=== PATIENT | female | born 1980 | race Caucasian/White ===

== ENCOUNTER 2024-01-15 02:10 | Observation (INO) | payer OTHER, SELFPAY ==
[2024-01-14] VITALS (7 sets, daily range): BP systolic 96–117; BP diastolic 53–69; BMI 25.1
[2024-01-14 22:43] LABS: % Basophils 0.2 % (0-2); % Eosinophils 0.1 % (0-6); % Immature Granulocytes 0.9 % (0-0.5); % Lymphocytes 6.8 % (20.5-51.1); % Monocytes 4.6 % (1.7-9.3); % Neutrophils 87.4 % (42.2-75.2); Absolute Basophils 0.1 10^3/uL (0-0.2); Absolute Immature Granulocytes 0.2 10^3/uL (0-0.05); Absolute Lymphocytes 1.5 10^3/uL (1.2-3.4); Absolute Neutrophils 19.1 10^3/uL (1.4-6.5); Hematocrit 28.7 % (37.0-47.0); Mean Corp Hgb Conc. 34.8 g/dL (33.0-37.0); Mean Corpuscular Hgb 29.4 pg (27.0-31.0); Mean Corpuscular Volume 84.4 fL (81.0-99.0); Mean Platelet Volume 10.2 fL (7.4-10.4); Nucleated Red Blood Cells % 0 %; Platelet Count 264 10^3/uL (130-400); Red Cell Dist. Width 13.4 % (11.5-14.5); White Blood Cell Count 21.8 10^3/uL (4.8-10.8)
[2024-01-14] MEDS: TORADOL 30 MG IV (22:47)
[2024-01-14] MEDS: ZOFRAN 4 MG IV (22:50)
--- NOTE | 2024-01-14 22:51 | ED.GENMED ---
History of Present Illness
General
Chief Complaint: Vaginal Bleeding
Source: patient and spouse
Exam Limitations: none
Time Seen by Provider: 01/14/24 22:38
Travel History
Have you had any contact with someone who has COVID-19?: No
Do you have any symptoms of coronavirus? Fever > 100 degrees, chills, cough, shortness of breath, sore throat, loss of taste or smell, muscle aches, or headache?: No
History of Present Illness
History of Present Illness:
This is a 43 year old female that comes in with c/o lower abd pain. states that she had a miscarriage last month. States that she bleed after this and then her bleeding stopped. Then on Monday she started with some brown bleeding and then
yesterday it turned red. State that she was also having clots. States that he came home yesterday he found her on the bathroom floor as she had passed out. States that today her pain is worse and she had chills, and vomited here. States that she has
a headache with dizziness. Denies any fever, chills, chest pain, SOB, diarrhea, urinary burning.
Past History
Past History
ED Past Medical History: Asthma and Other (Miscarriage, Ectopic, )
ED Past Surgical History: None
Social History
Tobacco: Non-smoker
Alcohol: None
Personal:
Living: with family
Review of Systems
Review of Systems
All Other Systems: ROS reviewed and negative except as documented in HPI and ROS
Constitutional: Reports chills; Denies fever
EENT: Reports no symptoms
Respiratory: Reports no symptoms; Denies cough or trouble breathing
Cardiac: Reports no symptoms; Denies chest pain
ABD/GI: Reports abdominal pain, nausea and vomiting; Denies diarrhea
: Reports no symptoms; Denies dysuria, frequency or urgency
Musculoskeletal: Reports no symptoms
Skin: Reports no symptoms
Neurological: Reports dizzy and headache
Psychiatric: Reports no symptoms
Phy Exam
General Physical Exam
General Presentation: moderate distress
General age: appears stated age
General Skin: warm, dry and pale
General Habitus: normal
General Mental: alert
General Hydration: dry mucous membranes
ENT Exam
ENT Exam: TM's normal, pharynx normal and neck supple
Eye Exam
Eye Exam: EOMI
Cardiovascular Exam
Cardiovascular Exam: regular rate/rhythm, no edema and normal peripheral pulses
Pulmonary Exam
Pulmonary Exam: lungs clear, no respiratory distress, no rales, chest non tender, no crackles, no rhonchi, no wheezing and no cough
Gastrointestinal Exam
Gastrointestinal Exam: normal bowel sounds, soft, no organomegaly, no pulsatile mass, non distended and tender (Severe right lower abd pain with palpation. )
Musculoskeletal Exam
Musculoskeletal Exam: full ROM and no edema
Skin Exam
Skin Exam: normal color, warm/dry, no rash and no petechia
Psychiatric Exam
Psychiatric Exam: normal mood/affect
Course
Orders/Labs/Results
Orders:
Orders
01/14/24 22:20
Cardiac Monitoring- Treatment ONCE
Test Result ONCE
01/14/24 22:35
Type+Screen Urgent
Beta HCG Quantitative Urgent
Comment: ADD ON
Complete Blood Count/With Diff Urgent
Comprehensive Metabolic Panel Urgent
HCG, Serum Qualitative Screen Urgent
01/14/24 22:46
Ketorolac [Toradol] 30 mg .ROUTE .STK-MED ONE
Ondansetron Injectable [Zofran] 4 mg .ROUTE .STK-MED ONE
01/14/24 22:47
Ketorolac [Toradol] 30 mg IV NOW STA
01/14/24 22:50
0.9% Sodium Chloride 1000 ml [Nss] 1,000 ml IV BOLUS
Ketorolac [Toradol] 30 mg IV NOW STA
Ondansetron Injectable [Zofran] 4 mg IV NOW STA
Ondansetron Injectable [Zofran] 4 mg IV NOW STA
01/14/24 22:55
Add On- LAB Urgent
Tests Added?: HCG Quantatative
01/14/24 23:28
US 1st Trimester Urgent
Comment:
Reason For Exam: Right lower abd pain.
01/14/24 23:31
HYDROmorphone [Dilaudid] 1 mg IV NOW STA
01/15/24 00:30
0.9% Sodium Chloride 1000 ml [Nss] 1,000 ml IV BOLUS
01/15/24 01:05
HYDROmorphone [Dilaudid] 1 mg IV NOW STA
01/15/24 01:06
HYDROmorphone [Dilaudid] 1 mg .ROUTE .STK-MED ONE
01/15/24 01:18
0.9% Sodium Chloride 500 ml [Nss] 500 ml IV BOLUS
Abnormal Lab Results
01/14/24
22:35
WBC 21.8 H 10^3/uL
(4.8-10.8)
RBC 3.40 L 10^6/uL
(4.20-5.40)
Hgb 10.0 L g/dL
(12.0-16.0)
Hct 28.7 L %
(37.0-47.0)
Abs Immat Gran (auto) 0.2 H 10^3/uL
(0-0.05)
Absolute Neuts (auto) 19.1 H 10^3/uL
(1.4-6.5)
Absolute Monos (auto) 1.0 H 10^3/uL
(0.1-0.6)
Immature Gran % 0.9 H %
(0-0.5)
Neutrophils % 87.4 H %
(42.2-75.2)
Lymphocytes % 6.8 L %
(20.5-51.1)
Sodium 134 L mmol/L
(135-145)
Chloride 108 H mmol/L
(98-107)
Carbon Dioxide 21 L mmol/L
(22-30)
Glucose 169 H mg/dl
(70-99)
01/14/24 22:35
01/14/24 22:35
Leukocytosis, H/H low. Glucose nonfasting. HCG 2470.00
Vital Signs
Initial and Last Documented VS:
Initial Vital Signs
Temp Pulse Resp BP Pulse Ox
98.9 F 113 18 107/64 100
01/14/24 22:21 01/14/24 22:21 01/14/24 22:21 01/14/24 22:21 01/14/24 22:21
Last Documented Vital Signs
Temp Pulse Resp BP Pulse Ox
98.9 F 77 14 107/59 100
01/14/24 22:21 01/15/24 01:11 01/15/24 01:11 01/15/24 01:11 01/15/24 01:15
Angiographer consulted with Physician
Angiographer consulted with physician?: Yes
Name of Physician Consulted: Dr. Cisneros
MDM/Problems Addressed
Differential Diagnosis Includes:
Appendicitis,
MDM/Problems Addressed:
This is a 43 year old female that comes in with c/o lower abd pain. states that she had a Miscarriage one month ago. State that she bleed after this and then stopped. Patient started on Monday with her first period. State that she has had
lower abd pain since yesterday with clots.
Will get labs and CT scan. IV fluids and medicate for pain.
Back to speak with . Explained that her HCG was positive so a Brown was done and her level is elevated. This may be an ectopic . Will cancel the CT scan and get US.
Back Into see patient and . Explained that there are retained products of conception. Discussed with Dr. Salgado and patient will be admitted by house [employer] to her service and she will take patient to the OR today.
Chronic conditions affecting care:
NA
Acute Exacerbation and/or Progression of Chronic Illness:
NA
*Radiology
Radiology exam reviewed: radiology read reviewed (US- abnormally shaped lobulated intrauterine appearent empty gestational sac in the lower uterine segment extending into the cervix, likely reflecting spontaneous in progress. Normal right
ovary. Left ovary not visualized. No suspicious adnexal mass lesions or pelvic free fluid. )
*Pulse Oximetry
Patient hypoxic: no
*EKG
Interpreted by ED Provider?: NA
Rate: EKG- N/A
*Pai G[employer] Manager Interpretation
Rate: normal
Heart Rate: 98
Rhythm: sinus
*Critical Care Note
Total Time (30-74mins, 75-104mins- exclusive of procedures): Not Applicable
ED Attending Note
-
Portions of this chart may have been created with voice recognition software.� Occasional wrong word or��sound alike� substitutions may have occurred due to the inherent limitations of voice recognition software.
Discharge Plan
Departure
Patient Disposition: Admit
Date of Disposition: 01/15/24
Time of Disposition: 01:41
Admit to: Med/Surg
Presentation/result/management discussed w/ accepting MD/DO: Dr. Salgado
Patient with high blood pressure during this ER visit?: No
Condition: Good
Covid-19: Not Applicable
Discharge Problem:
Retained products of conception
Prescriptions:
No Action
No Current Medications
0
Referrals:
UNKNOWN - PT DOES,NOT KNOW [Family Provider] -
Interventions
Interventions:
*Risk Screen - Suicide Last Done: 01/14/24 22:21
*General Assessment Last Done: 01/14/24 22:21
*Neglect/Abuse Screening Last Done: 01/14/24 22:21
ED- Fall Risk Assessment Last Done: 01/14/24 23:01
*ED COVID-19 Vaccine History Last Done: 01/14/24 22:33
ED-Female Genitourinary Assessment Last Done: 01/14/24 23:01
Discharge Date and Time
Print Language: KINYARWANDA
[2024-01-14 22:54] LABS: HCG, Serum Qualitative Screen Positive
[2024-01-14] MEDS: NSS 1000 IV (22:56)
[2024-01-14 22:58] LABS: ALT (SGPT) 16 U/L (0-35); AST (SGOT) 23 U/L (14-36); Albumin 3.9 g/dl (3.5-5.0); Alkaline Phosphatase 45 U/L (38-126); Blood Urea Nitrogen 16 mg/dl (7-17); Calcium 9.2 mg/dl (8.4-10.2); Carbon Dioxide 21 mmol/L (22-30); Chloride 108 mmol/L (98-107); Estimated Creatinine Clearance 77 ml/min; Glucose 169 mg/dl (70-99); Potassium 4.4 mmol/L (3.5-5.1); Sodium 134 mmol/L (135-145); Total Bilirubin 0.6 mg/dl (0.2-1.3); Total Protein 6.5 g/dl (6.3-8.2); eGFR > 60.00
[2024-01-14] MEDS: DILAUDID 1 MG IV (23:34)
[2024-01-15] VITALS (23 sets, daily range): BP systolic 90–130; BP diastolic 44–70; BMI 25.0
[2024-01-15] MEDS: NSS 1000 IV ×3 (00:30→18:36)
[2024-01-15] MEDS: NSS 500 IV (00:30)
[2024-01-15] MEDS: DILAUDID 1 MG IV (01:10)
--- NOTE | 2024-01-15 03:58 | HPS.HSE ---
Family Physician
-
Family Physician: NOT KNOW UNKNOWN - PT DOES
Chief Complaint
-
lower abdominal pain with vaginal bleeding
History of Present Illness
This is a pleasant 43 year old female who comes to the ED with her due to abdominal pain with vaginal bleeding along with syncopal episode in her bathroom. She experienced a miscarriage at home last month with some bleeding which eventually
resolved. A week ago she started with what looked like old brown bloody vaginal discharge that increased in frequency, became more red in color and contained clots. Her found her on the bathroom floor yesterday after a likely syncopal
episode. She eventually began to feel chills and the pain was worsening so they came here. She did have an episode of vomiting after arrival. PMH includes asthma. She denies LANDON, CP, SOB, GRULLON, diarrhea, dysuria or b/l LE discomfort.
Medical History
Past Medical History
Past Medical History: Reports Asthma
Additional Past Medical History:
miscarriage
Past Surgical History: Reports None
Social History
Tobacco: Non-smoker
Alcohol: None
Drug: None
Personal:
Living: With Family
Employment: Employed
Family History
Family History: Not pertinent
Allergies / Home Medications
Allergies reflects when Allergies were last updated in [facility].
Home Medications with original date entered in [facility]
Allergy/Medication List:
Allergies
Allergy/AdvReac Type Severity Reaction Status Date / Time
No Known Allergies Allergy Unverified 01/14/24 22:19
Home Medications
No Meds [No Current Medications] 01/14/24
Review of Systems
-
A 12 point ROS was completed and negative except as noted: Yes
Constitutional: Reports No Symptoms
EENT: Reports No Symptoms
Respiratory: Reports No Symptoms
Cardiac: Reports No Symptoms
Abdomen/GI: Reports Abdominal Pain (RLQ) and Nausea
: Reports No Symptoms
Musculoskeletal: Reports No Symptoms
Skin: Reports No Symptoms
Neurological: Reports No Symptoms
Endocrine: Reports No Symptoms
Hematologic/Lymphatic: Reports No Symptoms
Psych: Reports No Symptoms
Physical Exam
Vital Signs
Vital Signs
Temp Pulse Resp BP Pulse Ox
98.1 F 82 16 112/70 100
01/15/24 02:41 01/15/24 02:41 01/15/24 02:41 01/15/24 02:41 01/15/24 02:41
Physical Exam
General: Well Developed, Well Nourished and Comfortable
HEENT: NormoCephalic, Moist mucous membranes and Atraumatic
Respiratory: Clear and Non Labored Respirations
Cardiac: Regular Rhythm
Breast: Deferred by me
GI: Soft and Tender (RLQ)
Rectal: Deferred by Provider
Genito-urinary: No costovertebral tender and Vaginal Bleeding
Musculoskeletal: No Clubbing, No Cyanosis and No Edema
Skin: Warm and Dry
Neuro: Awake, Alert and AO x 3
Hematologic/Lymphatic: No Lymphadenopathy
Psych: Calm
Laboratory Results
-
01/14/24 22:35
Laboratory Results
Total Bilirubin 0.6 mg/dl (0.2-1.3) 01/14/24 22:35
AST 23 U/L (14-36) 01/14/24 22:35
ALT 16 U/L (0-35) 01/14/24 22:35
Alkaline Phosphatase 45 U/L (38-126) 01/14/24 22:35
Data Reviewed
-
Ultrasound: Report Reviewed by me
Lab Data: Labs Reviewed by me
Old Records: Reviewed
Impression/Plan
-
IMPRESSION: miscarriage with retained products of conception
PLAN: This is a pleasant 43 year old female who comes to the ED with her due to abdominal pain with vaginal bleeding along with syncopal episode in her bathroom. She experienced a miscarriage at home last month with some bleeding which
eventually resolved. A week ago she started with what looked like old brown bloody vaginal discharge that increased in frequency, became more red in color and contained clots. Her found her on the bathroom floor yesterday after a likely
syncopal episode. She eventually began to feel chills and the pain was worsening so they came here. She did have an episode of vomiting after arrival. PMH includes asthma. She denies LANDON, CP, SOB, GRULLON, diarrhea, dysuria or b/l LE discomfort.
*Miscarriage: NPO, Zofran IV, NS IVF, Dilaudid IV. CBC in am.
*Hx Asthma: stable.
*DVT prophylaxis: SCDs, oob ad che.
*Disposition: FC. Dr. Alonzo Salgado/Gynecology Service.
--- NOTE | 2024-01-15 05:51 | PTCARENOTE ---
[facility] 0230 pt came to floor from ED. Pt speaks Brazilian. Language line used for admission questions. Pt denies any pain but has been passing blood and is currently wearing attends. Pt for OR some time today. Pt instructed to ring for assistance.
--- NOTE | 2024-01-15 07:14 | W.SUR.PREOP ---
Pre-Operative Surgical Note
-
I have examined this patient prior to the performance of the scheduled procedure.
The patient's condition is unchanged from the time of the current History and
Physical and the patient is able to undergo the scheduled procedure.
Consented the patient for D&E with assistance from Language Line. Called , no answer, LM on VM.
[2024-01-15 08:13] LABS: Mean Corp Hgb Conc. 33.2 g/dL (33.0-37.0); Mean Corpuscular Hgb 29.4 pg (27.0-31.0); Mean Corpuscular Volume 88.7 fL (81.0-99.0); Platelet Count 182 10^3/uL (130-400); Red Blood Cell Count 2.31 10^6/uL (4.20-5.40); Red Cell Dist. Width 13.8 % (11.5-14.5)
[2024-01-15 08:45] LABS: Hematocrit 20.5 % (37.0-47.0); Hemoglobin 6.8 g/dL (12.0-16.0)
--- NOTE | 2024-01-15 09:13 | W.PN.UPDATE ---
Update Note
Progress Note Update
Informed by nurse that patient Hgb has dropped to 6.8 (previously 10). H/H: 6.8/20.5. She states she just helped patient to bathroom and there was a large amount of blood and clot. With the use of the language line I explained my concern about her
drop in blood count and recommended a blood transfusion. I also spoke with the patient's on the phone. They agree to proceed. Reviewed risks/effects. O.R. also called and patient will be moving down shortly
--- NOTE | 2024-01-15 10:48 | W.IMMPOSTOP ---
Surgical Immed Post Op Note
-
Primary Surgeon: Huggins
Assisting Surgeon: none
Pre-op Diagnosis: incomplete , Hemorrhage
Post-op Diagnosis: Same
Procedure Performed: D&E
Anesthesia Type: General LMA
Specimen / Cultures: POC
Estimated Blood Loss: 50cc
Complications: None apparent
Operative Findings: 1. Vagina and cervix filled with blood/clot and what appears to be tissue. removed with ring forceps and suction 2. Cervix 2cm dilated 3. 8mm suction catheter used no additional tissue noted in the suction catheter 4.
cytotec 800mcg given per rectum 5. 2U PRBCs started to infuse in the OR given anemia- hgb drop from 10 to 6.8 overnight.
--- NOTE | 2024-01-15 11:50 | PTCARENOTE ---
Pt arrived back to [facility] from PACU s/p D&E. Pt AAOx3, skin C/D/I, mesh underwear on with peripad in place C/D/I, IVF infusing. Pt states no pain at this time. Pt at bedside. Pt and her re-oriented to call christian and room, bed locked
and in lowest position, call christian within reach.
--- NOTE | 2024-01-15 13:09 | PTCARENOTE ---
Pt receiving 1 unit of PRBC. 20 minutes into transfusion patient started c/o double vision. I called blood bank to make them aware; blood bank stated double vision is not a reaction of blood transfusion, but to call the doctor and make them aware. I
reached out to Dr. Allen and made her aware of patient having double vision. Dr. Allen stated it is likely a reaction to blood loss and anesthesia effect. I called blood bank to update them on Dr. Allen's response. Blood bank made aware and to
continue blood transfusion. Pt and her updated and aware.
--- NOTE | 2024-01-15 16:06 | CM ---
CM met with pt and spouse bedside
They resides in a 3rd floor apartment with elevator access
Pt is independent with her ADLs
Denies use of DMEs
PCP- [facility]- new pt appt scheduled for next week
Rx- [facility] [address]
Pt is OBS- OBS form verbally completed
Copy provided
Discharge Disposition- home, no needs
[2024-01-15] MEDS: VIBRAMYCIN 200 MG PO (18:34)
[2024-01-15 18:41] LABS: Hematocrit 25.2 % (37.0-47.0)
[2024-01-15 18:44] LABS: Hemoglobin 8.7 g/dL (12.0-16.0)
--- NOTE | 2024-01-15 19:40 | W.PN.UPDATE ---
Update Note
Progress Note Update
Reevaluated patient this evening. She is sitting up in bed eating dinner. States that she feels so much better, cramping has resolved and minimal bleeding now. no further clots. Only notices blood after she voids. was also present so I spent
some time discussing with him as well
reviewed her H/H responded appropriately to the 2UPRBCs
h/H: 8.7/25.2.
She also received Doxycycline PO 200mg x 1 dose recently for infection ppx.
Given her significant blood loss and anemia, I plan to continue to monitor her through the night. Will also start on feosol.
repeat H/H, HCG ordered for the morning.
anticipate dc in the morning.
[2024-01-15] MEDS: FEOSOL 325 MG PO (19:47)
[2024-01-16 03:10] VITALS: BP 97/54
[2024-01-16 06:18] LABS: Hematocrit 23.1 % (37.0-47.0); Hemoglobin 7.9 g/dL (12.0-16.0)
[2024-01-16 07:02] VITALS: BP 120/73
[2024-01-16] MEDS: FEOSOL 325 MG PO (08:12)
[2024-01-16] MEDS: FLUZONE QUAD 2023-2024 SYRINGE 0.5 ML IM (08:16)
--- NOTE | 2024-01-16 08:46 | W.PN.OBG.DWH ---
Today's Communication / Plan
-
D/c home now. Reviewed home care instructions.
Assessment/Plan
-
43yo POD#1 s/p D&E for incomplete AB c/b Hemorrhage
1. Anemia 2/2 blood loss- s/p 2U PRBCs. Hgb 7.9 today.
-continue with oral iron supplement and iron rich foods
-monitor bleeding at home, reviewed reasons to call our office
2. Incomplete AB- s/p D&E
-pathology pending
-HCG decreasing
-s/p 2nd dose of doxycycline last night for infection ppx
-advised waiting until 1 normal period before trying to conceive again. Suggested as well at her age and hx that she see TAISHA
3. Regular diet
4. stable for dc home today
25 minutes spent speaking with patient and , documentation and discharge paperwork
Subjective Data
-
feels well, no pain/cramping. No n/v/f/c. tolerating PO intake. +ambulation, +void. Notices blood only with voiding, denies heavy bleeding. ready to go home
Objective Data
-
Laboratory Results
01/16/24 04:42
01/14/24 22:35
Vital Signs
Temp Pulse Resp BP Pulse Ox
98.3 F 78 18 120/73 100
01/16/24 07:02 01/16/24 07:02 01/16/24 07:02 01/16/24 07:02 01/16/24 07:02
HC.4 (previously 2400)
Gen: nad aaox3
abd: soft, nt, nd
Ext: no LE ttp
--- NOTE | 2024-01-16 09:00 | CM ---
CM following: discharge planning.
Reviewed pt's chart, met with pt and pt's at bedside.
Discharge order noted. Both pt and her are aware and pt's stated he will transport pt home.
Pt is independent with functional ability and no after care VN services indicated.
D/C plan: home no needs. to transport.
== END 2024-01-16 10:29 | disposition home or self-care (01) ==
LOC: 2 SOUTH 02:10
PROVIDERS: Obstetrics & Gynecology; Registered Nurse; ADMITTING PHYSICIAN Obstetrics & Gynecology; EMERGENCY PHYSICIAN Emergency Medicine
DX: O03.1 Delayed or excessive hemorrhage following incomplete spontaneous abortion (principal); N93.9 Abnormal uterine and vaginal bleeding, unspecified; D62 Acute posthemorrhagic anemia; R68.83 Chills (without fever); R11.10 Vomiting, unspecified; R51.9 Headache, unspecified; R42 Dizziness and giddiness; R10.31 Right lower quadrant pain; J45.909 Unspecified asthma, uncomplicated; Z23 Encounter for immunization
CPT/HCPCS: 59812; 88305; 36430; 76801; 80053; 84702; 84703; 85014; 85018; 85025; 85027; 86850; 86900; 86901; 86920; 90686; 96374; 96375; 96376; 99285; G0008; G0378; P9016

== ENCOUNTER 2024-05-11 10:07 | Emergency (ER) | payer OTHER, SELFPAY ==
[2024-05-11 10:16] VITALS: BP 117/95
--- NOTE | 2024-05-11 10:28 | ED.GENMED ---
History of Present Illness
General
Chief Complaint: Problems
Source: patient
Exam Limitations: none
Time Seen by Provider: 05/11/24 10:26
Nursing documentation reviewed up to this point in time: agreed with
History of Present Illness
History of Present Illness:
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
44 yo female -0-2-0 with hx of Incomplete AB (miscarriage 12/16) with retained products w hemorrhage and significant blood loss anemia 01/15/24 presents stating she is 5-6 weeks and this a.m. noted 'a little' blood on toilet paper when
she wiped. Has 'just a little bit' of cramping.
Denies any other PMHX. Had first OB appt scheduled for next week with Dr. Allen
Past History
Past History
ED Past Medical History: Asthma and Other (Miscarriage, Ectopic, )
ED Past Surgical History: None
Social History
Tobacco: Non-smoker
Alcohol: None
Personal:
Living: with family
Review of Systems
Review of Systems
Allergies reviewed?: Yes
All Other Systems: ROS reviewed and negative except as documented in HPI and ROS
Constitutional: Denies fever
Respiratory: Denies trouble breathing
Cardiac: Denies chest pain
ABD/GI: Reports abdominal pain (mild abd cramping); Denies nausea, vomiting or diarrhea
: Reports bleeding; Denies dysuria, frequency, difficulty voiding or urgency
Musculoskeletal: Reports no symptoms
Skin: Reports no symptoms
Neurological: Reports no symptoms
Phy Exam
Physical Exam
Physical Exam:
GENERAL: No acute distress. A&Ox3.
CONSTITUTIONAL: Afebrile.
EYES: clear, conjunctivae normal
ENMT: moist mucus membranes, Pharynx nl
RESPIRATORY: Regular respirations, nonlabored, lungs clear.
CARDIOVASCULAR: Regular rate and rhythm, no murmurs, no rubs.
GI: Soft, nontender, normal BS
: no blood on sanitary pad
MUSCULOSKELETAL: Moves with ease. Well perfused.
SKIN: Warm, dry, pink
PSYCH: Tearful mood and affect. Well kept, interactive and appropriate
NEUROLOGIC: Awake, alert and oriented. No focal neurological deficits
Course
Orders/Labs/Results
Orders:
Orders
05/11/24 10:32
US Transvaginal Only Urgent
Reason For Exam: Bleeding in early
05/11/24 10:58
Complete Blood Count/With Diff Urgent
Comprehensive Metabolic Panel Urgent
HCG, Beta Quantitative [Beta HCG Quantitative] Urgent
Is this a screen?: No
Abnormal Lab Results
05/11/24
10:58
Hct 36.5 L %
(37.0-47.0)
Monocytes % 9.4 H %
(1.7-9.3)
Sodium 134 L mmol/L
(135-145)
05/11/24 10:58
05/11/24 10:58
Vital Signs
Initial and Last Documented VS:
Initial Vital Signs
Temp Pulse Resp BP Pulse Ox
98.1 F 90 16 117/95 98
05/11/24 10:16 05/11/24 10:16 05/11/24 10:16 05/11/24 10:16 05/11/24 10:16
Last Documented Vital Signs
Temp Pulse Resp BP Pulse Ox
98.1 F 72 16 107/73 100
05/11/24 10:16 05/11/24 12:30 05/11/24 12:30 05/11/24 12:30 05/11/24 12:30
Information
Weeks gestation: Weeks: (5)
Location: Location: (intrauterine)
MDM/Problems Addressed
Differential Diagnosis Includes:
subchorionic hemorrhage, threatened miscarriag, ectopic
MDM/Problems Addressed:
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
44 yo female -0-2-0 with hx of Incomplete AB (miscarriage 12/16) with retained products w hemorrhage and significant blood loss anemia 01/15/24 presents stating she is 5-6 weeks and this a.m. noted 'a little' blood on toilet paper when
she wiped. Has 'just a little bit' of cramping.
Denies any other PMHX. Had first OB appt scheduled for next week with Dr. Allen
Tearful, afebrile
11:40 a.m.
CBC: Normal
CMP: normal
HC.00 consistent with 5-7 week
US radiology report read: IMPRESSION:
1. Small intrauterine gestational sac. No pole or yolk sac, likely due to the early gestational age. Correlation with beta hCG levels and short-term ultrasound follow-up as indicated.
2. 2.0 cm rounded hypoechoic lesion in the left ovary for which differential considerations include a complex cyst or solid mass. Can consider a follow-up ultrasound to assess for interval change versus further characterization with a routine pelvic
MRI.
Pt provided copy of US report, all questions answered.
Consulted Dr. Allen who would like her to have f/u US in 10-14 days. She will have office staff reach out to pt to arrange
*Critical Care Note
Total Time (30-74mins, 75-104mins- exclusive of procedures): Not Applicable
ED Attending Note
-
Portions of this chart may have been created with voice recognition software.� Occasional wrong word or��sound alike� substitutions may have occurred due to the inherent limitations of voice recognition software.
Discharge Plan
Departure
Patient Disposition: Home (Routine Discharge)
Date of Disposition: 05/11/24
Time of Disposition: 12:15
Patient with high blood pressure during this ER visit?: No
Condition: Fair
Discharge Problem:
Bleeding in early
Instructions: Bleeding in Early (DC)
Prescriptions:
No Action
acetaminophen [Tylenol Extra Strength] 500 mg Tablet
1,000 mg PO Q6HPRN PRN (Reason: mild pain) Qty: 0 0RF
ibuprofen 600 mg Tablet
600 mg PO Q6HPRN PRN (Reason: cramping) Qty: 30 0RF
ferrous sulfate [FeroSul] 325 mg (65 mg iron) Tablet
325 mg PO BID Qty: 30 0RF
Referrals:
Myrtle Allen MD [Active] - Keep scheduled appt
UNKNOWN - PT DOES,NOT KNOW [Family Provider] -
Activity Restrictions/Additional Instructions:
Dr. Allen would like you to have f/u US in 10-14 days. She will have office staff reach out to you to arrange
Return here at any time for worse abd pain, vaginal bleeding or feeling worse in any way
Interventions
Interventions:
*Risk Screen - Suicide Last Done: 05/11/24 10:16
*General Assessment Last Done: 05/11/24 10:16
*Neglect/Abuse Screening Last Done: 05/11/24 10:16
ED- Fall Risk Assessment Last Done: 05/11/24 10:50
*ED COVID-19 Vaccine History Last Done: 05/11/24 10:50
*Nursing Disposition Last Done: 05/11/24 12:51
ED-Female Genitourinary Assessment Last Done: 05/11/24 10:50
Discharge Date and Time
Discharge Date/Time: 05/11/24 12:53
Print Language: MALTESE
--- NOTE | 2024-05-11 10:37 | EDRN ---
Gege SHAFER in room w/pt.
[2024-05-11 10:48] VITALS: BMI 22.0
[2024-05-11 11:00] VITALS: BP 119/61
[2024-05-11 11:06] LABS: % Basophils 0.3 % (0-2); % Eosinophils 2.2 % (0-6); % Immature Granulocytes 0.4 % (0-0.5); % Lymphocytes 21.4 % (20.5-51.1); % Monocytes 9.4 % (1.7-9.3); % Neutrophils 66.3 % (42.2-75.2); Absolute Eosinophils 0.2 10^3/uL (0-0.7); Absolute Lymphocytes 1.4 10^3/uL (1.2-3.4); Absolute Monocytes 0.6 10^3/uL (0.1-0.6); Absolute Neutrophils 4.4 10^3/uL (1.4-6.5); Hematocrit 36.5 % (37.0-47.0); Hemoglobin 12.3 g/dL (12.0-16.0); Mean Corp Hgb Conc. 33.7 g/dL (33.0-37.0); Mean Corpuscular Hgb 28.2 pg (27.0-31.0); Mean Corpuscular Volume 83.7 fL (81.0-99.0); Mean Platelet Volume 10.2 fL (7.4-10.4); Nucleated Red Blood Cells % 0 %; Platelet Count 221 10^3/uL (130-400); Red Blood Cell Count 4.36 10^6/uL (4.20-5.40); Red Cell Dist. Width 14.4 % (11.5-14.5); White Blood Cell Count 6.7 10^3/uL (4.8-10.8)
[2024-05-11 11:20] LABS: ALT (SGPT) 14 U/L (0-35); AST (SGOT) 19 U/L (14-36); Albumin 4.1 g/dl (3.5-5.0); Alkaline Phosphatase 45 U/L (38-126); Blood Urea Nitrogen 9 mg/dl (7-17); Calcium 9.2 mg/dl (8.4-10.2); Carbon Dioxide 25 mmol/L (22-30); Chloride 104 mmol/L (98-107); Estimated Creatinine Clearance 95 ml/min; Glucose 95 mg/dl (70-99); Potassium 4.5 mmol/L (3.5-5.1); Sodium 134 mmol/L (135-145); Total Bilirubin 0.6 mg/dl (0.2-1.3); Total Protein 6.9 g/dl (6.3-8.2); eGFR > 60.00
--- NOTE | 2024-05-11 12:26 | EDRN ---
Pt OOB to BR at this time.
[2024-05-11 12:30] VITALS: BP 107/73
--- NOTE | 2024-05-11 12:36 | EDRN ---
Gege SHAFER in room w/pt reviewing results. Pt is to be discharged.
== END 2024-05-11 12:53 | disposition home or self-care (01) ==
LOC: EMR 10:07
PROVIDERS: Registered Nurse; EMERGENCY PHYSICIAN Emergency Medicine
DX: O20.9 Hemorrhage in early pregnancy, unspecified (principal); Z3A.00 Weeks of gestation of pregnancy not specified; J45.909 Unspecified asthma, uncomplicated
CPT/HCPCS: 99284; 76817; 80053; 84702; 85025

== ENCOUNTER → 2024-05-23 07:37 | Outpatient (REF) | payer OTHER, SELFPAY | LOC: PNTC 07:37 | PROVIDERS: ATTENDING PHYSICIAN Nurse Practitioner Family | DX: Z34.90 Encounter for supervision of normal pregnancy, unspecified, unspecified trimester (principal); O09.529 Supervision of elderly multigravida, unspecified trimester | CPT/HCPCS: 76801 ==

== ENCOUNTER → 2024-06-04 13:40 | Outpatient (REF) | payer OTHER, SELFPAY | LOC: RAD 13:40 | PROVIDERS: ATTENDING PHYSICIAN Obstetrics & Gynecology; FAMILY PHYSICIAN Family Medicine | DX: O26.851 Spotting complicating pregnancy, first trimester (principal) | CPT/HCPCS: 76801; 76817 ==

== ENCOUNTER 2024-06-11 06:35 | Day surgery (SDC) | payer OTHER, SELFPAY ==
[2024-06-11] VITALS (7 sets, daily range): BP systolic 101–116; BP diastolic 59–67; BMI 20.5
[2024-06-11] MEDS: VIBRAMYCIN 260 MG IV (08:53)
[2024-06-11] MEDS: NORMOSOL-R/PLASMALYTE-A 1000 IV (08:53)
[2024-06-11 09:04] LABS: Hematocrit 34.4 % (37.0-47.0); Hemoglobin 11.7 g/dL (12.0-16.0)
[2024-06-11] MEDS: CELEBREX 200 MG PO (09:07)
[2024-06-11] MEDS: TYLENOL 1000 MG PO (09:07)
== END 2024-06-11 12:40 | disposition home or self-care (01) ==
LOC: SDS 06:35
PROVIDERS: ATTENDING PHYSICIAN Obstetrics & Gynecology
DX: O02.1 Missed abortion (principal); Z3A.01 Less than 8 weeks gestation of pregnancy; O09.291 Supervision of pregnancy with other poor reproductive or obstetric history, first trimester
CPT/HCPCS: 59820; 88305; 85014; 85018; 86850; 86900; 86901